=== PATIENT | male | born 1980 | race Caucasian/White ===

== ENCOUNTER 2021-09-17 09:08 | Emergency (ER) | payer SELFPAY ==
[~2021-09-17] VITALS: Ht 177.8 cm; Wt 119.1 kg
--- NOTE | 2021-09-17 10:42 | PHYS DOC ---
Past Medical History Past Medical History: Hypertension Past Surgical History: No Surgical History Smoking Status: Current Every Day Smoker Additional Information: vapes Alcohol Use: None Drug Use: Marijuana General Adult EDM: Chief Complaint: HYPERTENSION HPI: HPI: Patient is a 41-year-old male who presents today with high blood pressure. Patient states that he was at a occupational health clinic for a DOT physical and they brought him here to the emergency department because his blood pressure was elevated in the clinic. Patient states that he does have a history of hypertension but stopped taking his blood pressure medications approximately 6 months ago because he thinks he did not need them. Patient denies chest pain, shortness of breath, or headache. Currently his blood pressure is 147/87 as I am in the room examining him. His blood pressure upon arrival in the emergency department was 172/112. Review of Systems: Review of Systems: Constitutional: Denies fever or chills. [] Eyes: Denies change in visual acuity. [] HENT: Denies nasal congestion or sore throat. [] Respiratory: Denies cough or shortness of breath. [] Cardiovascular: Hypertension GI: Denies abdominal pain, nausea, vomiting, bloody stools or diarrhea. [] : Denies dysuria. [] Musculoskeletal: Denies back pain or joint pain. [] Integument: Denies rash. [] Neurologic: Denies headache, focal weakness or sensory changes. [] Endocrine: Denies polyuria or polydipsia. [] Lymphatic: Denies swollen glands. [] Psychiatric: Denies depression or anxiety. [] Heart Score: C/O Chest Pain: No Risk Factors: Risk Factors: DM, Current or recent (<one month) smoker, HTN, HLP, family history of CAD, obesity. Risk Scores: Score 0 - 3: 2.5% MACE over next 6 weeks - Discharge Home Score 4 - 6: 20.3% MACE over next 6 weeks - Admit for Clinical Observation Score 7 - 10: 72.7% MACE over next 6 weeks - Early Invasive Strategies Allergies: Allergies: Allergies Coded Allergies Type Severity Reaction Last Updated Verified No Known Drug Allergies 09/17/21 No Physical Exam: PE: Constitutional: Well developed, well nourished, no acute distress, non-toxic appearance. [] HENT: Normocephalic, atraumatic, bilateral external ears normal, oropharynx moist, no oral exudates, nose normal. [] Eyes: PERRLA, EOMI, conjunctiva normal, no discharge. [] Neck: Normal range of motion, no tenderness, supple, no stridor. [] Cardiovascular:Heart rate regular rhythm, no murmur [] Lungs & Thorax: Bilateral breath sounds clear to auscultation [] Abdomen: Bowel sounds normal, soft, no tenderness, no masses, no pulsatile masses. [] Skin: Warm, dry, no erythema, no rash. [] Back: No tenderness, no CVA tenderness. [] Extremities: No tenderness, no cyanosis, no clubbing, ROM intact, no edema. [] Neurologic: Alert and oriented X 3, normal motor function, normal sensory function, no focal deficits noted. [] Psychologic: Affect normal, judgement normal, mood normal. [] Current Patient Data: Vital Signs: Vital Signs Date Time Temp Pulse Resp B/P (MAP) Pulse Ox O2 Delivery O2 Flow Rate FiO2 09/17/21 10:49 78 22 171/98 (122) 98 Room Air 09/17/21 10:30 78 20 165/99 (121) 97 Room Air 09/17/21 10:00 76 17 146/79 (101) 94 Room Air 09/17/21 09:39 86 21 169/95 (119) 98 Room Air 09/17/21 09:25 97.7 92 16 172/112 (132) 98 Room Air 97.7 EKG: EKG: EKG done at [address] Arvizu at 940 shows sinus rhythm with no ectopy at a rate of 85 with a NV interval of 164 ms with a QTC of 414 ms no STEMI [] Radiology/Procedures: Radiology/Procedures: [] Course & Med Decision Making: Course & Med Decision Making Pertinent Labs and Imaging studies reviewed. (See chart for details) I spoke to patient at length about the importance of managing his high blood pressure, he currently is having no chest pain, shortness of breath, or headache. His current blood pressure is 147/79 I advised him to follow-up with his primary care physician, he stated he did not have 1 I gave him a list of prime healthcare physicians in the area that he can follow-up with for further evaluation and management of his hypertension and I also gave him a list of clinical community resources to follow-up with should he need those types of resources. Patient verbalized understanding for the need for follow-up on his hypertension and in order to get his DOT physical passed Rosemarie Disclaimer: Rosemarie Disclaimer: This electronic medical record was generated, in whole or in part, using a voice recognition dictation system. Departure Departure Impression: Primary Impression: Hypertension Qualified Codes: I10 - Essential (primary) hypertension Disposition: HOME / SELF CARE / HOMELESS Condition: STABLE Referrals: NO PCP (PCP) Patient Instructions: Hypertension Additional Instructions: Follow-up with one of the listed [facility] healthcare physicians or your primary care physician, or one of the list of community resources for further medical management of your hypertension Return here to the emergency department should you start experiencing headache, shortness of breath, or chest pain. [facility] [address] [place] [address] [facility] [address] [place] [address] [facility] [address] [facility] [place] [address] [facility] [address] [place] [address] [facility] [address] [place] [address] [facility] [address] [place] [address] [facility] [address] [place] [address] [facility] [address] [place] [address] [facility] [address] [place] [address] [facility] [address] [place] [address] ABDELRAHMAN HANSON DIRECTOR OF N[employer]ES September 17, 2021 10:42
[2021-09-17 10:49] VITALS: BP 171/98
== END 2021-09-17 10:56 | disposition home or self-care (01) ==
LOC: ER 09:08
DX: I10 Essential (primary) hypertension (principal); F17.200 Nicotine dependence, unspecified, uncomplicated
CPT/HCPCS: 99285-25